=== PATIENT | female | born 1985 | race Caucasian/White ===

== ENCOUNTER 2017-02-26 15:26 | Emergency (ER) | payer OTHER ==
[~2017-02-26] VITALS: Ht 162.6 cm; Wt 71.9 kg
[2017-02-26 15:26] VITALS: BP 141/84
[2017-02-26] MEDS ORDERED: KETOROLAC 30 MG/1 ML ONE (15:57)
[2017-02-26] MEDS ORDERED: KETOROLAC 30 MG/1 ML IM ONE (16:00)
== END 2017-02-26 17:13 | disposition home or self-care (01) ==
LOC: ED 16:35
DX: S16.1XXA Strain of muscle, fascia and tendon at neck level, initial encounter (principal); W19.XXXA Unspecified fall, initial encounter; Y93.23 Activity, snow (alpine) (downhill) skiing, snowboarding, sledding, tobogganing and snow tubing; Y92.89 Other specified places as the place of occurrence of the external cause; Y99.8 Other external cause status
CPT/HCPCS: 72050; 96372; 99284; J1885